=== PATIENT | male | born 2000 | race Caucasian/White ===

== ENCOUNTER 2023-08-14 16:00 | Emergency (ER) | payer OTHER, SELFPAY ==
[2023-08-14 16:02] VITALS: BP 145/80
[2023-08-14 16:15] LABS: % Eosinophils 8.2 % (0-6); % Immature Granulocytes 0.3 % (0-0.5); % Lymphocytes 35.4 % (20.5-51.1); % Neutrophils 49.1 % (42.2-75.2); Absolute Basophils 0.1 10^3/uL (0-0.2); Absolute Eosinophils 0.8 10^3/uL (0-0.7); Absolute Lymphocytes 3.4 10^3/uL (1.2-3.4); Absolute Monocytes 0.6 10^3/uL (0.1-0.6); Absolute Neutrophils 4.7 10^3/uL (1.4-6.5); Hematocrit 41.4 % (39.0-52.0); Hemoglobin 14.7 g/dL (13.0-18.0); Mean Corp Hgb Conc. 35.5 g/dL (33.0-37.0); Mean Corpuscular Hgb 29.5 pg (27.0-31.0); Mean Corpuscular Volume 83.1 fL (80.0-94.0); Mean Platelet Volume 9.3 fL (7.4-10.4); Nucleated Red Blood Cells % 0 % (-); Platelet Count 313 10^3/uL (130-400); Red Blood Cell Count 4.98 10^6/uL (4.70-6.10); Red Cell Dist. Width 12.1 % (11.5-14.5); White Blood Cell Count 9.5 10^3/uL (4.8-10.8)
[2023-08-14 16:32] LABS: ALT (SGPT) 110 U/L (0-50); AST (SGOT) 58 U/L (17-59); Albumin 4.9 g/dl (3.5-5.0); Alkaline Phosphatase 89 U/L (38-126); Blood Urea Nitrogen 12 mg/dl (9-20); Calcium 9.5 mg/dl (8.4-10.2); Carbon Dioxide 27 mmol/L (22-30); Chloride 102 mmol/L (98-107); Glucose 94 mg/dl (70-99); Lipase 84 U/L (23-300); Sodium 140 mmol/L (135-145); Total Bilirubin 0.7 mg/dl (0.2-1.3); Total Protein 7.6 g/dl (6.3-8.2); eGFR > 60.00
--- NOTE | 2023-08-14 19:40 | ED.GENMED ---
History of Present Illness
General
Chief Complaint: Abdominal Symptoms
Source: patient
Time Seen by Provider: 08/14/23 17:17
History of Present Illness
History of Present Illness:
22-year-old male presenting emergency department for evaluation of generalized abdominal pain that has been waxing and waning for about 1 month, no exacerbating or alleviating factors. Went to 2 separate urgent cares with his last being today and
he was recommended to come to the ER for further evaluation. Patient also attempted to see his primary care doctor but they told him that it was likely a pulled muscle and that there was nothing they could do for him. He notes intermittent nausea
but no vomiting. He denies any chest pain or shortness of breath. No change in oral intake and food does not seem to aggravate his symptoms. Denies any previous abdominal surgeries. No other concerns at this time.
Past History
Past History
ED Past Medical History: None
ED Past Surgical History: None
Social History
Tobacco: Non-smoker
Alcohol: None
Drug: None
Personal: Single
Living: with family
Employment: Employed
Review of Systems
Review of Systems
All Other Systems: ROS reviewed and negative except as documented in HPI and ROS
Phy Exam
Physical Exam
Physical Exam:
GENERAL: Alert , in no apparent distress
EYE: clear conjunctiva b/l
HEAD: NCAT
ENT: o/p clr, mmm.
CARDIAC: Regular rate and rhythm .
LUNGS: Clear breath sounds bilaterally, no acute respiratory distress, no wheezes/rales/rhonchi
ABDOMEN: Soft, without focal tenderness, no r/g, no cvat, negative Meza sign, no tenderness at McBurney's point
NEUROLOGICAL: Alert and oriented
SKIN: Warm and dry, skin intact.
MUSCULOSKELETAL: well perfused.
PSYCH: Normal and appropriate interaction.
Scores
Heart Failure Risk
Heart Failure Risk Score: Not Applicable
Heart Score for Chest Pain Patients
STEMI patient?: Not applicable
Withdrawal Assessment of Alcohol
Withdrawal Assessment Completed?: Not applicable
Course
Orders/Labs/Results
Orders:
Orders
08/14/23 16:10
Complete Blood Count/With Diff Urgent
Comprehensive Metabolic Panel Urgent
Lipase Urgent
08/14/23 17:34
CT Abd/pelvis W Iv Cont Urgent
Comment:
Reason For Exam: generalized abd pain x 1 month
Abnormal Lab Results
08/14/23
16:10
Absolute Eos (auto) 0.8 H 10^3/uL
(0-0.7)
Eosinophils % 8.2 H %
(0-6)
ALT 110 H U/L
(0-50)
08/14/23 16:10
08/14/23 16:10
Vital Signs
Initial and Last Documented VS:
Initial Vital Signs
Temp Pulse Resp BP Pulse Ox
98.3 F 94 20 145/80 98
08/14/23 16:02 08/14/23 16:02 08/14/23 16:02 08/14/23 16:02 08/14/23 16:02
Last Documented Vital Signs
Temp Pulse Resp BP Pulse Ox
98.3 F 75 20 137/76 98
08/14/23 16:02 08/14/23 20:16 08/14/23 16:02 08/14/23 20:16 08/14/23 16:02
MDM/Problems Addressed
Differential Diagnosis Includes:
GERD, gastritis, IBS, pancreatitis, appendicitis
MDM/Problems Addressed:
22-year-old male present emergency department for evaluation of generalized abdominal pain x 1 month accompanied with intermittent nausea. Symptoms overall unchanged today however patient was recommended to come to the ER by urgent care to be
further evaluated. No focality on abdominal exam. Given he has been to 2 separate urgent cares and attempted to follow-up with primary care without any relief of symptoms will obtain CT to further evaluate.
*Radiology
Radiology exam reviewed: radiology read reviewed
*Pulse Oximetry
Patient hypoxic: no
*Critical Care Note
Total Time (30-74mins, 75-104mins- exclusive of procedures): Not Applicable
Patient Management
Escalation/DeEscalation of care consider admission/obs:
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 Given his symptoms have been ongoing for little over 1 month less likely
to be infection. Other findings and noted for fatty liver and hepatosplenomegaly. Patient was provided with a printout of CT report. Due to these findings and his difficulty in following up with primary care provider I notified our GI team and
sent message to the front line supervisor staff in order to help expedite outpatient follow-up. Patient was advised on return precautions to the emergency department. He will try and contact his primary care provider again in the morning. Can continue
Motrin/Tylenol as needed for pain. Otherwise stable for discharge home.
ED Attending Note
-
Portions of this chart may have been created with voice recognition software.� Occasional wrong word or��sound alike� substitutions may have occurred due to the inherent limitations of voice recognition software.
Discharge Plan
Departure
Patient Disposition: Home (Routine Discharge)
Date of Disposition: 08/14/23
Time of Disposition: 19:46
Patient with high blood pressure during this ER visit?: No
Discharge Problem:
Proctocolitis
Referrals:
Garcia Poole MD [Active] - (GI)
Ramakrishna Craig MD [Family Provider] -
Interventions
Interventions:
*Risk Screen - Suicide Last Done: 08/14/23 16:02
*General Assessment Last Done: 08/14/23 16:02
*Neglect/Abuse Screening Last Done: 08/14/23 16:02
*Nursing Disposition Last Done: 08/14/23 20:16
VT-Xnyzjw-Ntyfbnlxyh Assessment Last Done: 08/14/23 17:32
Discharge Date and Time
Discharge Date/Time: 08/14/23 20:16
Print Language: MONGOLIAN
[2023-08-14 19:50] VITALS: BP 137/76
[2023-08-14 20:16] VITALS: BP 137/76
== END 2023-08-14 20:16 | disposition home or self-care (01) ==
LOC: EMR 16:00
PROVIDERS: EMERGENCY PHYSICIAN Emergency Medicine; FAMILY PHYSICIAN Otolaryngology
DX: K51.20 Ulcerative (chronic) proctitis without complications (principal)
CPT/HCPCS: 99285; 74177; 80053; 83690; 85025; Q9967

== ENCOUNTER → 2023-08-31 06:27 | Day surgery (SDC) | payer OTHER, SELFPAY | LOC: GI 06:27 | PROVIDERS: ATTENDING PHYSICIAN Internal Medicine Gastroenterology | DX: R93.3 Abnormal findings on diagnostic imaging of other parts of digestive tract (principal); R10.9 Unspecified abdominal pain; K29.70 Gastritis, unspecified, without bleeding; K29.50 Unspecified chronic gastritis without bleeding; K31.89 Other diseases of stomach and duodenum | CPT/HCPCS: 45380; 43239; 88305; 88342 ==